=== PATIENT | female | born 1990 | race African-American/Black ===

== ENCOUNTER 2017-12-30 16:34 | Emergency (ER) | payer SELFPAY, OTHER | END 2017-12-30 17:10 | disposition left against medical advice (07) | LOC: E/R 16:34 | DX: Z53.21 Procedure and treatment not carried out due to patient leaving prior to being seen by health care provider (principal) ==

== ENCOUNTER 2019-04-09 11:39 | Emergency (ER) | payer OTHER ==
[2019-04-09 12:33] LABS: ADD MAN DIFF? NO
[2019-04-09 12:38] LABS: WHITE BLOOD COUNT 5.3 10^3/ul (4.8-10.8)
[2019-04-09 12:38] LABS: BASOPHILS % 0.4 % (0.0-2.0); EOSINOPHILS # 0.2 10^3/ul (0.0-0.5); HEMATOCRIT 35.5 % (37.0-47.0); HEMOGLOBIN 11.9 g/dl (12.0-16.0); LYMPHOCYTES # 1.5 10^3/ul (0.8-2.9); LYMPHOCYTES % 27.5 % (15.0-51.0); MEAN CORPUSCULAR HEMOGLOBIN 31.1 pg (29.0-33.0); MEAN CORPUSCULAR HGB CONC 33.5 g/dl (32.0-37.0); MEAN CORPUSCULAR VOLUME 92.7 fl (82.0-101.0); MEAN PLATELET VOLUME 10.3 fl (7.4-10.4); MONOCYTE # 0.5 10^3/ul (0.3-0.9); MONOCYTES % 8.8 % (0.0-11.0); NEUTROPHIL # 3.2 10^3/ul (1.6-7.5); NEUTROPHILS % 59.9 % (39.0-77.0); PLATELET COUNT 322 10^3/UL (140-415); RED BLOOD COUNT 3.83 10^6/ul (4.20-5.40); RED CELL DISTRIBUTION WIDTH 13.5 % (11.5-14.5)
[2019-04-09] MEDS: LORAZEPAM 2 MG INJ IV (12:52)
[2019-04-09] MEDS: SOD CHLORIDE 0.9% 1,000 ML IV (12:52)
[2019-04-09 12:57] LABS: ALANINE AMINOTRANSFERASE 44 IU/L (13-69); ALBUMIN 4.4 g/dl (3.3-4.9); ALBUMIN/GLOBULIN RATIO 1.51; ALKALINE PHOSPHATASE 71 IU/L (42-121); ANION GAP 11 (5-13); ASPARTATE AMINO TRANSFERASE 29 IU/L (15-46); BILIRUBIN,INDIRECT 0.6 mg/dl (0-1.1); BILIRUBIN,TOTAL 0.6 mg/dl (0.2-1.3); BLOOD UREA NITROGEN 13 mg/dl (7-20); CALCIUM 9.8 mg/dl (8.4-10.2); CARBON DIOXIDE 25 mmol/L (21-31); CHLORIDE 108 mmol/L (97-110); CREATININE 0.76 mg/dl (0.44-1.00); Estimated GFR > 60 mL/min (>60); GLUCOSE 134 mg/dl (70-220); LIPASE 205 U/L (23-300); POTASSIUM 3.9 mmol/L (3.5-5.1); SODIUM 144 mmol/L (135-144); TOTAL PROTEIN 7.3 g/dl (6.1-8.1)
== END 2019-04-09 15:13 | disposition home or self-care (01) ==
LOC: E/R 11:39
DX: F41.0 Panic disorder [episodic paroxysmal anxiety] (principal); F15.90 Other stimulant use, unspecified, uncomplicated; F17.210 Nicotine dependence, cigarettes, uncomplicated
CPT/HCPCS: 36415; 80053; 83690; 84703; 85025; 96374; 99284-25

== ENCOUNTER 2019-06-09 23:57 | Emergency (ER) | payer SELFPAY | END 2019-06-10 00:08 | disposition left against medical advice (07) | LOC: E/R 23:57 | DX: Z53.21 Procedure and treatment not carried out due to patient leaving prior to being seen by health care provider (principal) ==